=== PATIENT | female | born 1985 | race Caucasian/White ===

== ENCOUNTER 2022-10-15 06:50 | Emergency (ER) | payer BC, SELFPAY ==
[2022-10-15 07:32] VITALS: BP 119/76; PULSE 78; RESP 16; TEMP 36.4; O2SAT 99; BMI 25.6
--- NOTE | 2022-10-15 08:08 | ED.EXTPRO ---
HPI - Extremity Problem General Chief complaint: Extremity Problem Stated complaint: ring stuck on toe Time Seen by Provider: 10/15/22 07:57 Source: patient Mode of arrival: ambulatory Limitations: no limitations History of Present Illness HPI Narrative: 36 y/o female presenting to the ER for evaluation of a toe ring stuck on her 2nd toe of her right foot. She states she woke up with swelling in the toe and has not been able to remove the toe ring. She tried string compression, lubricant with no improvement. She states her toe is even more swollen now. She denies any trauma to the toe and just woke up that way. No redness or pain in the toe. MD Complaint: joint swelling Onset (ago): hour(s) Pain Consistency: constant Location: right and toe Relieving factors: nothing Exacerbating factors: palpation Associated symptoms: denies other symptoms Related Data Allergies Allergy/AdvReac Type Severity Reaction Status Date / Time No Known Allergies Allergy Unverified 03/07/20 19:23 [No Known Allergies*] Review of Systems Review of Systems: Yes all other systems are reviewed and are negative [facility] Social History Social History Advance Directives: No Advance Directives Information Provided: Yes Physical Exam Vital Signs: Vital Signs: Last Vital Signs Temp 97.6 F 10/15/22 07:32 Pulse 78 10/15/22 07:32 Resp 16 10/15/22 07:32 BP 119/76 10/15/22 07:32 Pulse Ox 99 10/15/22 07:32 O2 Del Method Room Air 10/15/22 07:32 BMI result Body Mass Index 25.6 Appearance: Alert. Oriented X3. No acute distress. HEENT: normal inspection CVS: Normal heart rate and rhythm. Pulses normal. Respiratory: No respiratory distress. Skin: Skin warm and dry. Normal skin color. Normal skin turgor. No rashes. Extremities: right foot with 2nd toe swelling distally, small gold toe ring in place proximally, unable to move. cap reill <3 sec. no redness or warmth to the toe. no open wounds Neuro: Oriented X 3. No motor deficit. No sensory deficit. Medical Decision Making Medical Decision Making MDM Narrative: 36 yo female presents w/ toe ring stuck on her 2nd right toe. moderate swelling noted from her tying to remove it at home. she is agreeable to getting it cut off. ring cutter was used with easy removal. no complications. stable for d/c home Differential Diagnosis Differential Diagnoses: The differential diagnosis associated with the presentation includes stuck toe ring, acute soft tissue swelling, gout Procedures Foreign Body Removal Time Out Performed: yes Site: right and foot Description of foreign body: other (toe ring) Sedation/Analgesia: none Technique: other (dolphin ring rescue cutter) Confirmed by:: direct visualization Complications: none Post-procedure exam: awake, alert Neurovascular: normal capillary fill and distal light touch sensation intact Critical Care Time Critical Care Time Critical Care Time: No Discharge Plan Discharge Clinical Impression: Swelling of toe of right foot Patient Disposition: Home, Self-Care Instructions: Swollen Joint (ED) Additional Instructions: Use ice, elevate and take anti-inflammatory medications like Advil, Aleve or ibuprofen as needed for pain and swelling of the toe. Interventions: ED Discharge Assessment Last Done: 10/15/22 08:14 Discharge Date/Time: 10/15/22 08:15
--- NOTE | 2022-10-15 08:15 | PC.NURSE ---
ring removed w ring cutter, nad, pt has swelling to toe and reported minor pain with full sensation reported
== END 2022-10-15 08:15 | disposition home or self-care (01) ==
PROVIDERS: Emergency Provider Emergency Medicine; PCP Student in an Organized Health Care Education/Training Program
DX: M25.474 Effusion, right foot (principal)
CPT/HCPCS: 99282